=== PATIENT | male | born 1970 | race Caucasian/White ===

== ENCOUNTER 2020-03-06 23:01 | Emergency (ER) | payer MEDICAID, SELFPAY ==
[2020-03-06 23:00] VITALS: BP 179/108; PULSE 75; RESP 18; TEMP 37.2; O2SAT 97; BMI 29.4
--- NOTE | 2020-03-06 23:13 | XR_ITS ---
PROCEDURE: XR CHEST 2V Referring Doctor: Stef Corona Patient Age:49Y CLINICAL HISTORY: chest pain Left-sided chest pain started this afternoon. Smoker. COMPARISON: CT CSWO CT CERVICAL SPINE W/O CONT from 02/20/2016 CR CXR2 CHEST-AP VIEW ONLY from 02/20/2016 FINDINGS: Today's PA and lateral chest is compared to 02/20/2016 CXR Lungs appear mildly hyperexpanded. Left lung clear unremarkable but stable. Right chest: Note subtle accentuation markings at the right infrahilar region-of could reflect some mild atelectasis in this region, could not subtle early infiltrate here at right infrahilar region towards right base... May in part merely reflect today's technique and projection. Heart is normal in size. [place] and mediastinal structures unchanged. We again see postsurgical changes at the lower C-spine from previous anterior discectomy and fusion. T-spine chest wall unremarkable. IMPRESSION: No prominent findings . Only question slight accentuation of markings right infrahilar region-which may reflect some minimal atelectasis here. Difficult to exclude scant infiltrate;. However this does not seem to correlate with the left sided chest pain history. -However if chest symptoms progress persist follow-up suggested Dictated by: Ty Dumont MD 03/07/2020 13:02 Ty Dumont MD in [place] 03/07/2020 13:02
--- NOTE | 2020-03-06 23:13 | ECG_ITS ---
APPROVED REPORT Exam: Resting ECG HR:77 bpm ECG Measurements Heart Rate 77 AXES W[place] 188 P 53 QRSd 100 QRS 65 QT 370 T 63 QTc 418 <Conclusion> Normal sinus rhythm Normal ECG Electronically signed by : Emil Garland, 03/08/2020 08:53:28
[2020-03-06 23:30] LABS: Basophils # 0.1 K/mm3 (0-0.2); Basophils % 1.1 % (0.1-2.0); Eosinophils # 0.3 K/mm3 (0.0-0.4); Eosinophils % 2.9 % (0.1-12.0); Hematocrit 43.1 % (42.0-52.0); Hemoglobin 14.4 g/dL (14.1-18.0); Lymphocytes # 3.6 K/mm3 (0.7-4.5); Lymphocytes % 34.3 % (10-50); Mean Corpuscular HGB Conc 33.3 g/dL (31.8-35.4); Mean Corpuscular Hemoglobin 28.4 pg (27.0-31.2); Mean Corpuscular Volume 85.2 fl (80-94); Mean Platelet Volume 7.5 fl (7.4-10.4); Monocytes # 0.6 K/mm3 (0.1-1.0); Monocytes % 5.3 % (1.7-9.3); Neutrophils # 5.9 K/mm3 (1.8-7.8); Neutrophils % 56.5 % (37.0-80.0); Platelet Count 245 K/mm3 (142-424); Red Blood Count 5.05 M/mm3 (4.60-6.20); Red Cell Distribution Width 14.4 % (11.5-17.5); White Blood Count 10.4 K/mm3 (4.8-10.8)
[2020-03-06 23:31] LABS: Microscopic, Urine URINE MICROSCOPIC (MICROSCOPIC)
[2020-03-06 23:35] LABS: Appearance,Urine CLEAR (Clear); Bilirubin,Urine Negative (Negative); Blood, Urine TRACE-I (Negative); Color,Urine YELLOW (Yellow); Glucose,Urine (UA) Negative (Negative); Ketones,Urine Negative (Negative); Leukocyte Esterase,Urine Negative (Negative); Nitrate,Urine Negative (Negative); PH,Urine 6.5 (5.0-8.5); Protein,Urine Negative (Negative); Specific Gravity, Urine 1.025 (1.005-1.030); Urobilinogen,Urine 0.2 EU/dl (0.2)
[2020-03-06 23:37] LABS: Amorphous Sediment,Urine Trace /lpf
[2020-03-06 23:39] LABS: Anion Gap 10.9 mEq/L (5-15); Blood Urea Nitrogen 22 mg/dl (9-20); Calcium 10.1 mg/dl (8.4-10.2); Carbon Dioxide 30 mmol/L (22.0-30.0); Chloride 104 mmol/L (98-107); Creatinine Clearance Estimated 120 mL/min (50-200); Estimated Glomerular Filt Rate 80 ml/min (>60); GFR (African American) 97 ML/MIN (>60); Glucose 108 mg/dl (74-100); Potassium 3.9 mmoL/L (3.5-5.1); Sodium 141 mmol/L (136-145)
[2020-03-06 23:43] LABS: Amphetamine/Metha Screen,Urine Negative ng/ml (<1000)
[2020-03-06 23:44] LABS: Barbiturates Screen,Urine Negative ng/ml (<200)
[2020-03-06 23:45] LABS: Benzodiazepines Screen,Urine Negative ng/ml (<200); Cannabinoid Screen,Urine Negative ng/ml (<50)
[2020-03-06 23:46] LABS: Cocaine Screen,Urine Negative ng/ml (<300)
[2020-03-06 23:47] LABS: Methadone Screen,Urine Negative ng/ml (<300); Opiate Screen,Urine Negative ng/ml (<300)
[2020-03-06 23:53] LABS: Troponin I < 0.01 ng/ml (0.00-0.034)
--- NOTE | 2020-03-06 23:58 | PC.NURSE ---
Pt rating CP 3 out of 10 after SL nitro
[2020-03-07] VITALS: BP 151/94; PULSE 72; RESP 20; O2SAT 98
[2020-03-07 00:02] LABS: Phencyclidine Screen,Urine Negative ng/ml (<25)
--- NOTE | 2020-03-07 00:38 | PC.NURSE ---
Pt rates pain 0 out of 10 at this time
--- NOTE | 2020-03-07 00:49 | [facility].EDCP ---
ED Disposition Clinical Impression: Chest pain Qualifiers: Chest pain type: precordial pain Qualified Code(s): R07.2 - Precordial pain Disposition: Home, Self-Care Condition on Discharge: Good Instructions: DI for Chest Pain Additional Instructions: see card clinic sunday at 0900 Referrals: PCP,No [Primary Care Provider] - - Critical Care Critical Care Time: No Attestation: On 03/06/20, the high probability of a clinically significant, sudden or life threatening deterioration of the following system(s) required my full and direct attention, intervention and personal management. The time I documented below is in addition to time spent performing reported procedures but includes the following listed in this critical care notation. Medical Decision Making - Medical Records Medical records reviewed: Yes: I reviewed the patient's medical records. - Hector Inquiry Pt receiving controlled substance: No Vital Signs: 03/06/20 23:00 03/07/20 00:00 03/07/20 01:00 Temperature 99.0 F Temperature Source Oral Pulse Rate [Right Radial] 75 72 71 Respiratory Rate 18 20 18 Blood Pressure [Right Arm] 179/108 H 151/94 H 139/92 H Blood Pressure Mean [Right Arm] 131 113 107 Blood Pressure Source [Right Arm] Automatic Cuff Automatic Cuff Automatic Cuff Blood Pressure Position [Right Arm] Supine Supine Supine 02 Sat by Pulse Oximetry 97 98 96 Oxygen Delivery Method Room Air Room Air Room Air - Lab Data Lab results reviewed: Yes: I reviewed the patient's lab results. Lab Results 03/06/20 23:05: WBC 10.4, RBC 5.05, Hgb 14.4, Hct 43.1, MCV 85.2, MCH 28.4, MCHC 33.3, RDW 14.4, Plt Count 245, MPV 7.5, Neut % (Auto) 56.5, Lymph % (Auto) 34.3, [place] % (Auto) 5.3, Eos % (Auto) 2.9, Baso % (Auto) 1.1, Neut # (Auto) 5.9, Lymph # (Auto) 3.6, [place] # (Auto) 0.6, Eos # (Auto) 0.3, Baso # (Auto) 0.1 03/06/20 23:05: Sodium 141, Potassium 3.9, Chloride 104, Carbon Dioxide 30, Anion Gap 10.9, BUN 22 H, Creatinine 1.00, Estimated Creat Clear 120, Estimated GFR 80, Est GFR ( Amer) 97, Glucose 108 H, Calcium 10.1, Troponin I < 0.01 03/06/20 23:25: Urine Color Yellow, Urine Appearance Clear, Urine pH 6.5, Ur Specific [place] 1.025, Urine Protein Negative, Urine Glucose (UA) Negative, Urine Ketones Negative, Urine Blood Trace-i, Urine Nitrate Negative, Urine Bilirubin Negative, Urine Urobilinogen 0.2, Ur Leukocyte Esterase Negative, Urine RBC 3-5, Amorphous Sediment Trace 03/06/20 23:25: Urine Opiates Screen Negative, Urine Methadone Screen Negative, Ur Barbituates Screen Negative, Ur Phencyclidine Scrn Negative, Ur Amphetamines Screen Negative, U Benzodiazepines Scrn Negative, Urine Cocaine Screen Negative, U Marijuana (THC) Screen Negative 03/07/20 02:12: Troponin I < 0.01 Result diagrams: 03/06/20 23:05 03/06/20 23:05 Orders (Tests/Meds): ED MEDICATIONS Generic Name Dose Route Start Last Admin Trade Name Freq PRN Reason Stop Dose Admin Sodium Chloride 1,000 mls @ 999 mls/hr 03/06/20 23:15 03/06/20 23:43 Sod Chlor 0.9% 1000ml Bag IV 03/07/20 00:15 999 mls/hr .Q1H1M ARASELI Administration Nitroglycerin 0.4 mg 03/06/20 23:14 03/06/20 23:32 Nitrostat 0.4mg Sl Tablet SL 04/05/20 23:13 0.4 mg Q5MINP PRN Administration Chest Pain Discontinued Medications Generic Name Dose Route Start Last Admin Trade Name Freq PRN Reason Stop Dose Admin Nitroglycerin 1 gm 03/06/20 23:56 03/07/20 00:00 Nitroglycerin 1 Inch Oint Udp TD 03/06/20 23:57 1 gm ONCE ONE Administration ORDERS Category Date Time Status Chest XR 2 view (NOT portable) [XR chest 2V] Stat Exams 03/06/20 23:13 Taken Troponin I Q3H Lab 03/07/20 05:15 Ordered ECG Request by /Ai Stat Y 03/06/20 23:13 Ordered - Radiology Data #1 Image(s): Chest Image Reviewed: Yes I reviewed the patient's radiology image Preliminary Findings: Normal/NAD - ECG Data Tracing #1 Normal Sinus Rhythm: Yes Ischemic changes: non-spec
[2020-03-07 01:00] VITALS: BP 139/92; PULSE 71; RESP 18; O2SAT 96
[2020-03-07 02:44] LABS: Troponin I < 0.01 ng/ml (0.00-0.034)
[2020-03-07 03:07] VITALS: BP 139/93; PULSE 76; RESP 17; TEMP 36.9; O2SAT 96
== END 2020-03-07 03:08 | disposition home or self-care (01) ==
PROVIDERS: Emergency Provider Emergency Medicine
DX: R07.2 Precordial pain (principal); E78.5 Hyperlipidemia, unspecified; I10 Essential (primary) hypertension; F17.210 Nicotine dependence, cigarettes, uncomplicated; F15.11 Other stimulant abuse, in remission
CPT/HCPCS: 71046; 80048; 80305; 81001; 84484; 85025; 93005; 96365; 99283

== ENCOUNTER 2020-03-10 22:48 | Emergency (ER) | payer MEDICAID, SELFPAY ==
[2020-03-10 22:41] VITALS: BP 156/107; PULSE 76; RESP 17; TEMP 36.6; O2SAT 96; BMI 29.2
--- NOTE | 2020-03-10 22:49 | XR_ITS ---
PROCEDURE: XR TIBIA FIBULA RT 2V CLINICAL INDICATION: fall Posttraumatic pain COMPARISON: CR LLR LOWER LEG-RT from 02/19/2016 FINDINGS: There is a bone plate present along the lateral aspect of the tibia extending from the proximal shaft to the distal articular surface with the old distal tib fib fracture noted. There is good alignment. No acute fracture or dislocation. Prosthesis appears intact. There is good alignment IMPRESSION: Status post ORIF distal tibial fracture with good alignment and no acute finding Dictated by: Jatinder Snell MD 03/11/2020 05:34 Jatinder Snell MD in [place] 03/11/2020 05:34
--- NOTE | 2020-03-10 23:14 | [facility].EDFALL ---
ED Disposition Clinical Impression: Lower leg soft tissue injury Qualifiers: Encounter type: initial encounter Laterality: right Qualified Code(s): S89.91XA - Unspecified injury of right lower leg, initial encounter HTN (hypertension) Qualifiers: Hypertension type: essential hypertension Qualified Code(s): I10 - Essential (primary) hypertension Disposition: Home, Self-Care Condition on Discharge: Good Instructions: How to Prevent Falls Additional Instructions: see pcp for follow up and bp eval Referrals: Provider,Referral, MD [Primary Care Provider] - - Critical Care Critical Care Time: No Attestation: On 03/10/20, the high probability of a clinically significant, sudden or life threatening deterioration of the following system(s) required my full and direct attention, intervention and personal management. The time I documented below is in addition to time spent performing reported procedures but includes the following listed in this critical care notation. Medical Decision Making - Medical Records Medical records reviewed: Yes: I reviewed the patient's medical records. - Hector Inquiry Pt receiving controlled substance: No Vital Signs: 03/10/20 22:41 Temperature 97.9 F Temperature Source Oral Pulse Rate [Right Brachial] 76 Respiratory Rate 17 Blood Pressure [Right Arm] 156/107 H Blood Pressure Mean [Right Arm] 123 Blood Pressure Source [Right Arm] Automatic Cuff Blood Pressure Position [Right Arm] Sitting 02 Sat by Pulse Oximetry 96 Oxygen Delivery Method Room Air - Lab Data Lab results reviewed: Yes: I reviewed the patient's lab results. Orders (Tests/Meds): ED MEDICATIONS Discontinued Medications Generic Name Dose Route Start Last Admin Trade Name Freq PRN Reason Stop Dose Admin Ibuprofen 800 mg 03/10/20 22:48 03/10/20 22:48 Motrin 400mg Tablet PO 03/10/20 22:49 800 mg ONCE ONE Administration ORDERS Category Date Time Status XR tibia fibula RT 2V Stat Exams 03/10/20 22:49 Ordered - Radiology Data #1 Image(s): Tib/Fib Image Reviewed: Yes I reviewed the patient's radiology image Preliminary Findings: Abnormal (s/p orif), No Fracture Seen Fall HPI - General Chief Complaint: Fall Stated Complaint: right leg pain after fall Time Seen by Provider: 03/10/20 23:00 Mode of Arrival: EMS Source of Information: Patient, EMS, Medical Record Limitations: No Limitations Description of Symptoms (Recalled from ER Triage Doc. by RN): rle pain to leg that patient states is acute following a fall out of bed this morning - History of Present Illness HPI Narrative: fell this am 0700 and injured rt lower leg and has hx of prev orif - no hip pain or other c/o MD complaint: fall Onset (ago): hour(s) Fall from: out of bed Fall witnessed: no Place fall occurred: other (rehab) Loss of consciousness: none Prolonged down time: no Location of injury - extremities: Right: lower leg Severity: moderate Associated symptoms (after fall): denies - Related Data Home Medications Medication Instructions Recorded Confirmed Albuterol Sulfate [Proair 90 mcg IH Q4-6H PRN 03/06/20 03/06/20 Digihaler] Meloxicam 15 mg PO DAILY 03/06/20 03/06/20 Sertraline HCl [Zoloft] 50 mg PO HS 03/06/20 03/06/20 Trazodone HCl 100 mg PO HS 03/06/20 03/06/20 cloNIDine HCL [cloNIDine 0.1mg 0.1 mg PO DAILY 03/06/20 03/06/20 Tablet] hydrOXYzine HCL [Hydroxyzine HCl] 50 mg PO Q8HP PRN 03/06/20 03/06/20 lisinopriL [Lisinopril 20mg Tab] 20 mg PO DAILY 03/06/20 03/06/20 Allergies Allergy/AdvReac Type Severity Reaction Status Date / Time No Known Drug Allergies Allergy Verified 03/06/20 23:28 H History - Hepatitis A Screen Drug use history?: No High risk sexual behaviors?: No History of sexually transmitted infection?: No Currently employed?: No Childcare worker?: No Do you have indoor plumbing?: Yes Do you have electricity?: Yes Attestation statement:: This patient
--- NOTE | 2020-03-10 23:22 | PC.NURSE ---
pt to ct
[2020-03-11 00:01] VITALS: BP 142/75; PULSE 85; RESP 15; TEMP 36.7; O2SAT 98
== END 2020-03-11 00:05 | disposition home or self-care (01) ==
PROVIDERS: Emergency Provider Emergency Medicine
DX: S89.91XA Unspecified injury of right lower leg, initial encounter (principal); W06.XXXA Fall from bed, initial encounter; Y92.013 Bedroom of single-family (private) house as the place of occurrence of the external cause; I10 Essential (primary) hypertension; F17.210 Nicotine dependence, cigarettes, uncomplicated; Z79.899 Other long term (current) drug therapy
CPT/HCPCS: 73590; 99282